=== PATIENT | male | born 1990 | race Caucasian/White ===

== ENCOUNTER 2020-03-27 09:38 | Emergency (ER) | payer BC, SELFPAY ==
[2020-03-27 09:40] VITALS: BP 157/109; PULSE 83; RESP 17; TEMP 35.9; O2SAT 97; BMI 34.2
--- NOTE | 2020-03-27 09:56 | CT_ITS ---
STUDY: CT ABDOMEN AND PELVIS WITH CONTRAST REASON FOR EXAM: Male, 29 years old. RT ABD PAIN X 7 DAYS RADIATION DOSAGE (If Supplied By Facility): CTDIvol = ( 16.51 ) mGy, DLP = ( 1289.44 ) mGycm TECHNIQUE: Transaxial images were obtained from the dome of the diaphragm to the symphysis pubis with oral contrast. Oral and amp; IV Gastrografin and amp; 100mL Isovue-300 was administered. Sagittal and coronal images were reconstructed. Individualized dose optimization techniques were used for this CT. COMPARISON: None. FINDINGS: Minimal degree of dependent bibasilar atelectasis. The visualized portions of the heart are within normal limits. Normal liver. Surgical clips are seen along the undersurface of the liver. Small gallstones. Borderline splenomegaly. Normal pancreas. Normal bilateral adrenal glands. Normal right kidney. Normal left kidney. Normal visualized stomach. Normal small intestine. Thickening of the wall of the proximal transverse colon and hepatic flexure. Colitis should be ruled out. Small mesenteric lymph nodes are seen in the right lower quadrant is suggestive of mesenteric adenitis. Normal abdominal aorta. Normal inferior vena cava. There is borderline retroperitoneal lymphadenopathy with enlarged nodes no greater than 10mm in the short axis diameter. Surgical clips are seen in the retroperitoneum. Normal urinary bladder. Normal abdominal wall. Straightening of the normal lumbar lordosis. CT/Abdomen/Pelvis WITH Contrast IMPRESSION: Small gallstones. Thickening of the proximal portion of the transverse colon and hepatic flexure. Colitis should be ruled out. Mesenteric adenitis in the right lower quadrant. Borderline splenomegaly. Electronically Signed: Fabian Damon, at 12:09 EST , Service support ,
[2020-03-27 10:14] LABS: Absolute Lymphocyte Count 1.74 X10^3/uL (0.83-4.51); Basophil# 0.01 X10^3/uL; Basophil% 0.2 % (0-1); Eosinophil# 0.05 X10^3/uL; Eosinophils% 1.1 % (0-5); Hematocrit 47.2 % (40-54); Hemoglobin 15.7 g/dL (13.0-16.5); Lymphocyte # 1.74 X10^3/ul (4.0); Mean Corp Hgb Conc 33.3 g/dL (32-36); Mean Corpuscular Hgb 29.6 pg (27.0-32.0); Mean Corpuscular Volume 88.9 fL (80-94); Mean Platelet Vol. 9.3 fl (6.2-12.0); Monocyte# 0.56 X10^3/uL; Monocyte% 12.9 % (0-10); NRBC Flagged by Analyzer 0 % (0-5); Neutrophil # 1.98 X10^3/uL (2.7-7.7); Neutrophil % 45.6 % (47-70); Platelet Count 199 K/mm3 (150-450); RBC Distribution Width CV 12.7 % (11.6-14.6); RBC Distribution Width SD 41.6 fl (35.1-43.9); Red Blood Count 5.31 M/mm3 (4.6-6.2); White Blood Count 4.4 K/mm3 (4.4-11.0)
[2020-03-27] MEDS: 0.9% Normal Saline 1,000 ML 125 ML IV (10:19)
[2020-03-27 10:39] LABS: Bacteria 0 SEEN /hpf (None Seen); Mucous, Urine 0 SEEN /hpf (<or=2+); Red Blood Cells-Urine 0 SEEN /hpf (0-5); White Blood Cells 0 SEEN /hpf (0-5)
[2020-03-27 10:42] LABS: ALB/GLOB Ratio 1.1 RATIO (0.9-2.4); AST(SGOT) 27 U/L (15-37); Alanine Aminotransfer ALT/SGPT 71 U/L (16-61); Alkaline Phosphatase 87 U/L (45-117); Anion Gap 4 (5-15); BUN 9 mg/dL (7-18); Calcium,Total 8.7 mg/dL (8.5-10.1); Chloride 104 mmol/L (98-107); Creatinine, Serum 1.12 mg/dL (0.70-1.30); EST Glomerular Filtration Rate 83 mL/min (>60); Est Glom Filt Rate - Afr Amer 100 mL/min (>60); Estimated Creatinine Clearance 107.78 ml/min; Globulin 3.5 g/dL (2.2-4.2); Glucose 105 mg/dL (74-106); Lipase 82 U/L (73-393); Potassium 3.8 mmol/L (3.5-5.1); Protein, Total 7.5 g/dL (6.4-8.2); Sodium Level 137 mmol/L (136-145)
[2020-03-27 10:46] LABS: Color, Urine Yellow (Yellow); Glucose, Dipstick Normal (Normal); Ketone-Dipstick Negative (Negative); Leukocyte Esterase-Dipstick Negative /ul (Negative); Nitrite-Dipstick Negative (Negative); Occult Blood-Urine Negative /ul (Negative); Protein-Dipstick Negative (Negative); Specific Gravity, Urine 1.025 (1.002-1.030); Urine Bilirubin Dipstick Negative (Negative); Urine Clarity Sl. Cloudy (Clear); Urine Urobilinogen Normal (Normal)
[2020-03-27 11:07] LABS: Squamous Epithelial Cells - UA 0-5 SEEN /hpf (0-5)
[2020-03-27 11:11] LABS: Lactic Acid 0.7 mmol/L (0.4-1.9)
--- NOTE | 2020-03-27 12:17 | ED.VISSUMM ---
- ER Visit Summary Date of Service: 03/27/20 Chief Complaint: [Abdominal pain] History of Present Illness: The patient is a 29 M [presents to the emergency department complaint of abdominal pain for the last 7 days. Patient also states he has had excessive gas over the last 4 days. Patient states that he always has loose stools and stool really is not any different than usual. Patient states the pain initially was in the upper abdomen but seems to have moved more to the right lower abdomen. Patient has had no nausea or vomiting. He is not had any fevers. He denies urinary symptoms. Food does not seem to make the pain worse or better.] Patient states that as a child he had to have some sort of a surgery on his colon as an infant but cannot remember exactly what he had done. Physical Examination: [HEENT-PERRLA, EOMI. Cranial nerves II through XII grossly intact. TMs clear. Mucous membranes moist. No adenopathy. Cardiovascular-regular rate and rhythm without murmur or ectopy Lungs-clear to auscultation, chest wall stable without crepitus or subcu emphysema Abdomen-normoactive bowel sounds, soft. Patient has tenderness to palpation over the epigastric region as well as the right lower quadrant. Patient tends to guard more over the right lower quadrant. Has had negative Kowalski sign. There is no rebound, rigidity, or peritoneal signs. Extremities-intact ?4, normal range of motion, normal pulses, atraumatic] Test Results: [CBC with differential showed a white count of 4.4, hemoglobin 15.7, hematocrit 47, platelets 199. Chemistries unremarkable. LFTs were unremarkable other than a slightly elevated ALT at 71. Urinalysis was normal. Lactate was normal 0.7. CT scan of the abdomen pelvis showed small gallstones and thickening of the proximal colon and transverse colon which could indicate colitis. Patient also had mesenteric adenitis in the right lower quadrant.] Emergency Department Course and Treatment: [IV line established on arrival. He refused any pain medication on arrival.] Treatment Plan: [Case was discussed with patient and results were given. At this point etiology of his pain is unclear although I suspect he may have colitis and will start on Cipro and Flagyl. Patient will be referred to general surgeon on-call for follow-up. Patient advised to return if worsening pain, fever, vomiting, or condition should worsen anyway.] I do not feel patient has acute cholecystitis. Disposition: [Discharged home in stable condition] Impression: [Abdominal pain Colitis Cholelithiasis] This note was generated with [employer] dictation software. It may contain incorrect words, spelling, and punctuation that were not noted in review of the chart prior to signing ED Disposition - Plan for ED Patient: Referrals: Tucker Palomares MD [Primary Care Provider] -
--- NOTE | 2020-03-27 12:20 | ED.DEP ---
ED Disposition - Plan for ED Patient: Instructions: ED Unknown Causes of Abdominal Pain Male, ED Gastroenteritis Bacterial Prescriptions: Ciprofloxacin [Cipro] 500 mg PO BID #14 tab Prescription Printed metroNIDAZOLE [Flagyl] 500 mg PO Q8H #21 tab Prescription Printed Referrals: Tucker Palomares MD [Primary Care Provider] - Franklin Veronica MD [STAFF PHYSICIAN] - 3-5 Days
[2020-03-27 12:56] VITALS: BP 121/65; PULSE 74; RESP 15; O2SAT 98
[2020-03-27] MEDS: metroNIDAZOLE 500 MG Tablet PO (12:56)
[2020-03-27] MEDS: Ciprofloxacin 250 MG Tablet 500 MG PO (12:56)
== END 2020-03-27 13:08 | disposition home or self-care (01) ==
PROVIDERS: Emergency Provider Emergency Medicine; PCP Family Medicine
DX: K52.9 Noninfective gastroenteritis and colitis, unspecified (principal); K80.20 Calculus of gallbladder without cholecystitis without obstruction; R10.9 Unspecified abdominal pain; I88.0 Nonspecific mesenteric lymphadenitis
CPT/HCPCS: 74177; 80053; 81001; 83605; 83690; 85025; 96360; 96361; 99284; J7030; Q9967; A4216

== ENCOUNTER 2020-12-19 02:22 | Emergency (ER) | payer BC, SELFPAY ==
[2020-12-19 02:23] VITALS: BP 139/79; PULSE 79; RESP 24; TEMP 35.1; O2SAT 95; BMI 34.1
[2020-12-19 02:27] VITALS: BP 139/79; PULSE 79; PULSE 94; RESP 24; RESP 32; TEMP 35.1; O2SAT 95; O2SAT 97
--- NOTE | 2020-12-19 02:34 | CT_ITS ---
STUDY: CTA CHEST REASON FOR EXAM: Male, 30 years old. pulmonary embolism RADIATION DOSAGE (If Supplied By Facility): CTDIvol = ( 13.75 ) mGy, DLP = ( 539.77 ) mGycm TECHNIQUE: The examination was performed with the intravenous administration of IV 100mL Isovue-370. Post-processing of the angiographic images was performed, with multiplanar reformation and 3D reconstruction. Individualized dose optimization techniques were used for this CT. COMPARISON: None. FINDINGS: Normal enhancement of the main pulmonary artery and right and left pulmonary arteries. Normal enhancement of the bilateral peripheral pulmonary arteries. There is no demonstrated pulmonary embolism. Normal thoracic aorta and visualized great vessels. There is no demonstrated aortic dissection. Normal heart and pericardium. Normal mediastinum. Normal hilar regions. Normal visualized trachea and bronchi. Diffuse and patchy groundglass airspace disease bilaterally compatible with COVID. No consolidation or effusion. Normal pleura. Normal chest wall structures. Normal osseous structures. Normal visualized upper abdomen. CT/CTA Chest W/WO Contrast IMPRESSION: Normal CTA chest examination, without a demonstrated pulmonary embolism or arterial dissection. Diffuse patchy airspace disease with groundglass appearance compatible with COVID. Electronically Signed: Navid Park DO at 4:44 EDT Tel , Service support ,
--- NOTE | 2020-12-19 02:35 | EDS_ITS ---
HPI History of Present Illness Chief Complaint: Syncope Informant: patient, spouse/S.O. and family Narrative Narrative: 30-year-old male presents the emergency room with syncopal episode. Patient is Covid positive and on about day 7 or 8 symptoms. He began to feel ill last Wednesday and was positive by . He was on vacation in the [facility] and was taken to the hospital by car but then later by EMS as he had a syncopal episode there. He received IV fluids and was discharged home. They returned home about 24 hours ago. The patient has been having nausea and diarrhea as well as headaches. States he has been doing his best to eat and drink. Has been urinating fine. Has been taking Tylenol for fever. The patient states that the syncopal episode occurred in the setting of a diarrhea event. He denies any chest pain but notes shortness of breath [facility] Medical History Femur fracture, left Femur fracture, right Home Medications dexamethasone [Decadron] 6 mg PO DAILY #5 tab 12/19/20 [Rx Last Taken Unknown] Allergy/AdvReac Type Severity Reaction Status Date / Time morphine Allergy Other Verified 03/27/20 09:39 Surgical History History of colostomy reversal Social History (Updated 12/19/20 @ 02:[address] Efrain Montes DO) Smoking Status: Never smoker substance use type: does not use ROS ROS ED Constitutional Constitutional ED: Reports chills, fever(s) and other Details: General weakness ; Denies weight loss Eyes Eyes: Denies change in vision or diplopia ENT ENT ED: Denies ear pain, rhinorrhea or sore throat Cardiovascular Cardiovascular: Denies chest pain, orthopnea, palpitations or racing heartbeat Respiratory/Chest Respiratory/Chest: Reports dyspnea and dyspnea on exertion; Denies cough or orthopnea Gastrointestinal Gastrointestinal: Reports diarrhea and nausea; Denies abdominal pain or vomiting Genitourinary Genitourinary ED: Denies dysuria, hematuria or urinary frequency Musculoskeletal Musculoskeletal: Reports myalgias; Denies arthralgias Integumentary Denies abscess or rash Neurologic Neurologic: Reports headache(s); Denies weakness Psychiatric Psychiatric: Denies anxiety, depression, suicidal ideation or suicidal thoughts Endocrine Endocrinology: Denies polydipsia, polyphagia or polyuria Allergic/Immunologic Allergic/Immunologic ED: Denies mouth swelling, tongue swelling or urticaria EXAM Physical Exam Const Vital Signs: 12/19/20 02:23 12/19/20 02:27 12/19/20 02:45 Temperature 95.2 F L 95.2 F L Temperature Source Temporal Temporal Pulse Rate 79 79 74 Respiratory Rate 24 H 24 H Respiratory Pattern Tachypnea Blood Pressure 139/79 H 139/79 H Blood Pressure Mean 99 99 Pulse Ox 95 95 Oxygen Delivery Method Room Air Room Air Positive well nourished and well developed General Appearance ED: well developed HEENT Reports normocephalic, head/scalp atraumatic and moist mucous membranes Eyes PERRL and EOMs intact bilaterally Neck no lymphadenopathy, supple and no JVD Resp normal respiratory effort and clear to auscultation bilaterally Cardio regular rate, regular rhythm and no murmurs GI normal to inspection, nondistended, normoactive bowel sounds and non-tender Palpation: soft Back/Spine no CVA tenderness and normal ROM Extremity normal to inspection General Extremety ED: Negative for edema General Extremity: Negative for edema Neuro oriented x3 and CN's II-XII intact bilaterally Sensorium / Orientation: alert Motor Exam: strength 5/5 throughout Psych mental status grossly normal Mood & Affect: Negative for depressed or tearful Skin no rashes or lesions noted and no wounds MDM MDM MDM Narrative Medical decision making narrative: CTA of the chest was negative for pulmonary embolism or dissection. Noted Covid areas of pneumonitis. White count is 6. Normal platelet count of 163. Electrolytes glucose and renal function are normal. Troponin 7.2. Patient will be given IV fluids and a dose of Decadron and albuterol. We can schedule some Decadron at home. We talked about home care return if worsening or concerns Lab Data Attestation: I reviewed the patient's lab results. Labs: Laboratory Results - last 24 hr 12/19/20 12/19/20 02:30 02:30 WBC 6.0 RBC 5.09 Hgb 14.9 Hct 44.5 MCV 87.4 MCH 29.3 MCHC 33.5 RDW Std Deviation 41.1 RDW Coeff of Germain 12.8 Plt Count 163 MPV 9.6 Immature Gran % (Auto) 0.700 Neut % (Auto) 66.7 Lymph % (Auto) 28.7 [place] % (Auto) 3.7 Eos % (Auto) 0.0 Baso % (Auto) 0.2 Absolute Neuts (auto) 4.0 Absolute Lymphs (auto) 1.73 Nucleated RBC % 0 Sodium 138 Potassium 3.7 Chloride 106 Carbon Dioxide 23.0 Anion Gap 9 BUN 7 Creatinine 0.97 Estim Creat Clear Calc 119.68 Est GFR (MDRD) Af Amer 117 Est GFR (MDRD) Non-Af 97 BUN/Creatinine Ratio 7.2 L Glucose 138 H Calcium 8.8 Total Bilirubin 0.50 AST 29 ALT 40 Alkaline Phosphatase 51 Troponin I High Sens 7.2 Total Protein 7.3 Albumin 3.4 Globulin 3.9 Albumin/Globulin Ratio 0.9 Radiography Diagnostic Testing: Radiology Impression Chest CTA 12/19/20 02:34 IMPRESSION: Normal CTA chest examination, without a demonstrated pulmonary embolism or arterial dissection. Diffuse patchy airspace disease with groundglass appearance compatible with COVID. Electronically Signed: Navid Park DO at 4:44 EDT Tel , Service support , EKG Initial EKG: Attestation: I personally reviewed and interpreted this EKG as follows: Comments: EKG demonstrates a normal sinus rhythm with a ventricular rate of 73 bpm. No concerning features of ACS or ectopy noted. Discharge Plan Triage Chief Complaint: Syncope Other Complaint: Weakness ED Provider: Efrain Montes Dx/Rx/DC Orders Clinical Impression: Syncope, COVID-19 Instructions: Coronavirus Disease 2019 (COVID-19): Caring for Yourself or Others Prescriptions: New dexamethasone [Decadron] 6 mg tablet 6 mg PO DAILY Qty: 5 RF: 0 Primary Care Provider: Tucker Palomares Referrals: Tucker Palomares MD [Primary Care Provider] - As Needed Disposition Disposition: Home, Self Care
--- NOTE | 2020-12-19 02:35 | EKG12_ITS ---
Test Reason : SYNCOPE Blood Pressure : / mmHG Vent. Rate : 073 BPM Atrial Rate : 073 BPM P-R Int : 170 ms QRS Dur : 086 ms QT Int : 392 ms P-R-T Axes : 043 047 036 degrees QTc Int : 431 ms Normal sinus rhythm Normal ECG Confirmed by SHARONA SCOTT, RODGER ([id number]), senior technical editor DIANELYS IBRAHIM ([id number]) on 12/23/2020 9:38:27 AM Referred By: Confirmed By:RODGER TABOR MD
[2020-12-19 02:40] LABS: Absolute Lymphocyte Count 1.73 X10^3/uL (0.83-4.51); Basophil# 0.01 X10^3/uL; Basophil% 0.2 % (0-1); Hematocrit 44.5 % (40-54); Hemoglobin 14.9 g/dL (13.0-16.5); Lymphocyte # 1.73 X10^3/ul (0.83-4.51); Lymphocyte % 28.7 % (19-41); Mean Corp Hgb Conc 33.5 g/dL (32-36); Mean Corpuscular Hgb 29.3 pg (27.0-32.0); Mean Corpuscular Volume 87.4 fL (80-94); Mean Platelet Vol. 9.6 fl (6.2-12.0); Monocyte# 0.22 X10^3/uL; Monocyte% 3.7 % (0-10); NRBC Flagged by Analyzer 0 % (0-5); Neutrophil # 4.02 X10^3/uL (2.7-7.7); Neutrophil % 66.7 % (47-70); Platelet Count 163 K/mm3 (150-450); RBC Distribution Width CV 12.8 % (11.6-14.6); RBC Distribution Width SD 41.1 fl (35.1-43.9); Red Blood Count 5.09 M/mm3 (4.6-6.2)
[2020-12-19] MEDS: 0.9% Normal Saline 1,000 ML 999 ML IV ×2 (02:44→04:27)
[2020-12-19] MEDS: Ketorolac 30 MG/ML Syringe IV (02:44)
[2020-12-19] MEDS: Ondansetron 4 MG/2 ML Vial IV (02:44)
[2020-12-19 02:45] VITALS: PULSE 74
[2020-12-19 02:59] LABS: ALB/GLOB Ratio 0.9 RATIO (0.9-2.4); AST(SGOT) 29 U/L (15-37); Alanine Aminotransfer ALT/SGPT 40 U/L (16-61); Albumin, Serum 3.4 g/dL (3.2-5.0); Alkaline Phosphatase 51 U/L (45-117); Anion Gap 9 (5-15); BUN 7 mg/dL (7-18); BUN/Creat Ratio 7.2 RATIO (10-20); Calcium,Total 8.8 mg/dL (8.5-10.1); Chloride 106 mmol/L (98-107); Creatinine, Serum 0.97 mg/dL (0.70-1.30); EST Glomerular Filtration Rate 97 mL/min (>60); Est Glom Filt Rate - Afr Amer 117 mL/min (>60); Estimated Creatinine Clearance 119.68 ml/min; Globulin 3.9 g/dL (2.2-4.2); Glucose 138 mg/dL (74-106); Potassium 3.7 mmol/L (3.5-5.1); Protein, Total 7.3 g/dL (6.4-8.2); Sodium Level 138 mmol/L (136-145); Troponin-I HS 7.2 pg/mL (3.0-78.5)
[2020-12-19 04:30] VITALS: BP 139/79; PULSE 74; RESP 32; TEMP 35.1; O2SAT 97
[2020-12-19] MEDS: dexAMETHasone 4 MG Tablet 6 MG PO (05:04)
[2020-12-19] MEDS: INHALER, ASSIST DEVICES 1 EACH SPACER INHALATION (05:05)
[2020-12-19 05:21] VITALS: BP 112/78; PULSE 64; RESP 22; TEMP 37; O2SAT 95
== END 2020-12-19 05:21 | disposition home or self-care (01) ==
PROVIDERS: Emergency Provider Emergency Medicine; PCP Family Medicine
DX: U07.1 COVID-19 (principal); R55 Syncope and collapse
CPT/HCPCS: 71275; 80053; 84484; 85025; 93005; 96361; 96374; 96375; 99285; J7030; Q9967; A4216; J2405

== ENCOUNTER 2022-08-27 00:36 | Emergency (ER) | payer BC, SELFPAY ==
[2022-08-27 00:37] VITALS: BP 172/96; PULSE 80; RESP 18; TEMP 37; O2SAT 99; BMI 23.4
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
[2022-08-27] MEDS: Tetracaine 0.5% Ophthalmic Bottle 1 DRP EACH EYE (01:33)
[2022-08-27] MEDS: Erythromycin Base 1 OPTH.TUBE 1 APPLIC EACH EYE (03:26)
== END 2022-08-27 03:31 | disposition home or self-care (01) ==
PROVIDERS: Emergency Provider Student in an Organized Health Care Education/Training Program; PCP Family Medicine; Visit Provider Student in an Organized Health Care Education/Training Program
DX: T26.41XA Burn of right eye and adnexa, part unspecified, initial encounter (principal); T26.42XA Burn of left eye and adnexa, part unspecified, initial encounter; X08.8XXA Exposure to other specified smoke, fire and flames, initial encounter
CPT/HCPCS: 99282

== ENCOUNTER 2023-11-14 07:53 | Emergency (ER) | payer BC, SELFPAY ==
[2023-11-14 07:53] VITALS: BP 164/100; PULSE 98; RESP 18; TEMP 36.1; O2SAT 98; BMI 38.1
--- NOTE | 2023-11-14 08:14 | EDS_ITS ---
HPI HPI - URI History of Present Illness Chief Complaint: Ear Problem Narrative Narrative: 33-year-old male presenting with what he presumes is a viral syndrome. He has a cough and some congestion. Patient states he had a low-grade fever but reports it was 99 ?F. Patient denies any nausea or vomiting. His states that both she and their daughter have the cough first and he was last to get it. They both have recovered already. He does feel like he has some mild bodyaches and chills. Patient is more concerned today with his left ear pain which started. Denies any trauma. He states he thought he had drainage coming out of his ear today. ROS ROS ED Constitutional Constitutional ED: Reports chills, fever(s) and subjective; Denies sweats Eyes Eyes: Denies blurry vision or change in vision ENT ENT ED: Reports ear pain left; Denies sore throat Cardiovascular Cardiovascular: Denies chest pain, palpitations or racing heartbeat Respiratory/Chest Respiratory/Chest: Denies cough, dyspnea or sputum Gastrointestinal Gastrointestinal: Denies abdominal pain, constipation, diarrhea, nausea or v omiting Genitourinary Genitourinary ED: Denies dysuria, hematuria or urinary frequency Musculoskeletal Musculoskeletal: Reports myalgias; Denies arthralgias or neck pain Integumentary Denies abscess, Abrasions or rash Neurologic Neurologic: Denies headache(s), paresthesias or weakness Psychiatric Psychiatric: Denies anxiety, depression, suicidal ideation or suicidal thoughts Endocrine Endocrinology: Denies polydipsia or polyuria [facility] Medical History Femur fracture, right Femur fracture, left Home Medications ?Medication ?Instructions ?Recorded ?Last Taken ?Type dexamethasone 6 mg tablet 6 mg PO DAILY #5 tabs 12/19/20 Unknown Rx (Decadron) amoxicillin 875 mg tablet 875 mg PO BID #14 tabs 11/14/23 Unknown Rx Allergy/AdvReac Type Severity Reaction Status Date / Time morphine Allergy Other Verified 11/14/23 07:53 Surgical History History of colostomy reversal Social History Smoking Status: Never smoker substance use type: does not use EXAM Physical Exam Const Vital Signs: 11/14/23 07:53 Temperature 96.9 F L Temperature Source Temporal Pulse Rate 98 Respiratory Rate 18 Blood Pressure 164/100 H Blood Pressure Mean 121 Pulse Ox 98 Oxygen Delivery Method Room Air Positive well nourished General Appearance ED: NAD; Negative for pallor HEENT Reports moist mucous membranes normocephalic External Ear: external ears normal Tympanic Membrane ED: Yes TM abnormal bulging, erythematous and loss of landmarks Eyes PERRL Neck no lymphadenopathy Resp normal respiratory effort Auscultation: Negative for rales, rhonchi or wheezes GI non-tender Extremity normal to inspection Neuro oriented x3 and CN's II-XII intact bilaterally Sensorium / Orientation: alert Psych mental status grossly normal Skin General Skin Exam: Negative for jaundice or pallor MDM MDM MDM Narrative Medical decision making narrative: Patient is here with cough and mild congestion. He is more concerned with his left ear pain. I did correctional counselor him that his heart is regular and rhythm not murmur lungs clear BILATERALLY. Patient was offered viral testing and chest x- ray but declines. I do not believe he needs lab work. Vital signs stable he is afebrile. Patient has left otitis media. Patient will be sent on amoxicillin. Return precautions discussed. Impression: 1. Viral syndrome 2. Otitis media Lab Data Attestation: I reviewed the patient's lab results. Discharge Plan Triage Chief Complaint: Ear Problem ED Provider: Chang Platt Dx/Rx/DC Orders Instructions: ED Otitis Media Adult Prescriptions: New amoxicillin 875 mg tablet 875 mg PO BID Qty: 14 0RF No Action dexamethasone [Decadron] 6 mg tablet 6 mg PO DAILY Qty: 5 0RF Primary Care Provider: Ori Palomares Referrals: Ori Palomares MD [Primary Care Provider] - Print Language: Filipino Disposition Disposition: Home, Self Care
[2023-11-14 08:55] VITALS: BP 127/63; PULSE 84; RESP 16; TEMP 36.2; O2SAT 99
== END 2023-11-14 08:56 | disposition home or self-care (01) ==
LOC: ED 08:22
PROVIDERS: Emergency Provider Student in an Organized Health Care Education/Training Program; Visit Provider Student in an Organized Health Care Education/Training Program
DX: B34.9 Viral infection, unspecified (principal); H66.92 Otitis media, unspecified, left ear
CPT/HCPCS: 99282

== ENCOUNTER 2025-01-18 11:31 | Emergency (ER) | payer OTHER, SELFPAY ==
[2025-01-18] VITALS (7 sets, daily range): BP systolic 124–191; BP diastolic 72–122; PULSE 66–107; RESP 12–20; TEMP 36.6–36.8; O2SAT 96–100; BMI 41.3
[2025-01-18] MEDS: fentaNYL 100 MCG/2 ML Ampul IV (11:39)
--- NOTE | 2025-01-18 11:41 | CT_ITS ---
PROCEDURE: CTA UPPER EXT W/WO CONTRAST 01/18/2025 REASON FOR EXAM: WRIST LACERATION Bleeding. TECHNIQUE: Procedure Code: [id number] Modality: CT Procedure: CTA UPPER EXT W/WO CONTRAST Coronal and Sagittal reconstruction series were provided. CONTRAST: Isovue-300 VOLUME: 100 mL One or more dose reduction techniques were used (e.g., Automated exposure control, adjustment of the mA and/or kV according to patient size, use of iterative reconstruction technique). RADIATION DOSE SUMMARY: CTDlvol: 9.6 mGy DLP: 137.31 mGycm COMPARISON: Prior radiographs done earlier in the day. FINDINGS: Bones: Unremarkable Joints: Joint space(s) preserved. No subluxation or dislocation. Soft Tissues: Soft tissue laceration overlying the volar aspect of the wrist. No vascular abnormality is seen. No evidence of hematoma. CT/CTA Upper Ext W/WO Contrast IMPRESSION: No vascular abnormality is seen. Reading Location: [id number]
[2025-01-18] MEDS: 0.9% Normal Saline (1000mL) 1,000 ML 999 ML IV (11:47)
--- NOTE | 2025-01-18 11:48 | EX.ED.DYSGE1 ---
HPI History of Present Illness Chief Complaint: Laceration Narrative Narrative: Patient is a 34-year-old male with no known significant past medical history who presents to the emergency department the chief complaint of right wrist laceration. He states that he was working earlier and notes that a steel plate cut his wrist. He states that he is unsure when his last tetanus shot was. Patient is complaining of severe pain in the right upper extremity as well as some numbness in his right hand. [facility] Medical History Femur fracture, right Femur fracture, left Home Medications ?Medication ?Instructions ?Recorded ?Last Taken ?Type cephalexin 500 mg capsule 500 mg PO BID 7 days #14 caps 01/18/25 Unknown Rx ondansetron 4 mg disintegrating 4 mg PO Q6H PRN nausea and 01/18/25 Unknown Rx tablet vomiting #20 tabs oxycodone-acetaminophen 5 mg-325 1 tab PO Q6H PRN pain 3 days #12 01/18/25 Unknown Rx mg tablet (Endocet) tabs sulfamethoxazole 800 1 tab PO BID 7 days #14 tabs 01/18/25 Unknown Rx mg-trimethoprim 160 mg tablet Allergy/AdvReac Type Severity Reaction Status Date / Time morphine Allergy Other Verified 11/14/23 07:53 Surgical History History of colostomy reversal Social History Smoking Status: Never smoker substance use type: does not use ROS ROS ED ROS Narrative Neurological: Complains of numbness in his right hand, denies weakness Musculoskeletal: Complains of right wrist pain from the laceration Skin: Complains of laceration of the right wrist as noted above EXAM Physical Exam Narrative Exam Narrative: General: Patient was lying in bed did appear to be uncomfortable secondary to the pain Head: Atraumatic, normocephalic Eyes: PERRL bilaterally, EOMI bilateral, no conjunctival injection noted Neck: Soft, supple, trachea midline Cardiovascular: Patient tachycardic with a regular rhythm Respiratory: Clear to auscultation bilaterally Abdomen: Soft, nondistended, tender to palpation Musculoskeletal: Patient has tenderness palpation over the volar aspect of his right wrist Extremities: Radial pulses +2/4 in the right upper extremity, cap refill less than 2 seconds in the right upper extremity, +5/5 strength noted in the right upper extremity and the left upper extremity Neurological: Patient follow commands knew that he was at [facility] year is 2024. Sensation was intact when compared bilaterally grossly Skin: Patient has a complex approximately 6.5 cm laceration over the volar aspect of his right wrist with originally active bleeding noted however after pressure this resolved Const Vital Signs: 01/18/25 11:33 01/18/25 12:01 01/18/25 12:30 Temperature 97.9 F Temperature Source Temporal Pulse Rate 107 H 84 82 Respiratory Rate 20 H 16 16 Blood Pressure 191/122 H 144/92 H 144/92 H Blood Pressure Mean 145 109 109 Pulse Ox 100 98 98 Oxygen Delivery Method Room Air Room Air Room Air 01/18/25 13:22 01/18/25 14:00 01/18/25 16:16 Temperature Temperature Source Pulse Rate 77 77 66 Respiratory Rate 15 18 12 Blood Pressure 135/85 H 127/91 H 124/72 H Blood Pressure Mean 101 103 89 Pulse Ox 100 96 98 Oxygen Delivery Method Room Air Room Air Room Air 01/18/25 16:33 Temperature 98.2 F Temperature Source Pulse Rate 66 Respiratory Rate 14 Blood Pressure 127/89 H Blood Pressure Mean 101 Pulse Ox 100 Oxygen Delivery Method MDM MDM MDM Narrative Medical decision making narrative: Patient is a 34-year-old male who presents to the emergency department the chief complaint of a right wrist injury and laceration. On the differential diagnose includes but not limited to skin laceration, vascular injury, neurological injury, open fracture. Once workup is obtained reviewed he will be reevaluated. Patient tetanus shot will be updated. Patient BMP reviewed showed a sodium is normal 137, potassium is 3.6, creatinine normal at 1.12. Patient's x-ray of his wrist reviewed by myself and by radiology showed no acute fractures or foreign body laceration noted. Patient CTA of his upper extremity was reviewed originally by vascular surgery and Dr. Espinosa and he states that everything appears to be patent. Patient's CTA was also read by radiology which showed no vascular abnormalities noted. Patient's wound was copiously irrigated see procedure note for separate details. Tetanus shot was updated. Patient given 2 g Ancef. Reached out to the hand surgeon here however he is out of town and states that this patient needs close follow-up. Therefore I reached out to [facility] orthopedics and spoke with Dr. Mccabe physician entry level administrative assistant and she recommends me reaching out to [facility] orthopedic upper extremity surgeon Dr. Riley. I discussed the case with him and he states that he will see this patient tomorrow is recommending a volar splint to be placed as well. Procedure note Procedure name: Laceration repair Indication: Reduce risk of infection Location: Right volar aspect of forearm complex 6-1/2 cm laceration with 2 small arterial bleeds Preprocedure diagnosis: Laceration Postprocedure diagnosis: Repaired laceration Informed consent was obtained prior to procedure started. Procedure: The appropriate timeout was taken. The area was prepped and draped in usual sterile fashion. Local anesthesia was achieved using 4 cc of lidocaine 1% with epinephrine. An attempt to get the bleeding to stop however this was unsuccessful therefore 3 [id number] stitches were placed using 4-0 Vicryl to stop the small arterial bleeds that were noted. There were 2 of these. Wound was copiously irrigated. While later the patient was anesthetized with 1% lidocaine without epinephrine a total of 6 cc 20 4-0 Ethilon interrupted sutures were placed. Estimated blood loss was less than 0.5 mL. Dressing was applied to the area and anticipatory guidance, as well as standard postprocedure care was explained. Return precautions are given. Patient tolerated procedure well without any complications. Follow-up visit for suture removal and evaluation of laceration. Procedure note Patient had Adaptic placed over the laceration followed by 4 x 4's followed by Webril. Patient then had plaster applied with a volar splint to the right upper extremity followed by Webril and Brandt wrap. Patient remains neurovascularly intact afterwards. Lab Data Labs: Laboratory Results - last 24 hr 01/18/25 11:47 Sodium 137 Potassium 3.6 Chloride 101 Carbon Dioxide 22.0 Anion Gap 14 BUN 14 Creatinine 1.12 Estim Creat Clear Calc 127.59 Est GFR (MDRD) Non-Af 89 BUN/Creatinine Ratio 12.4 Glucose 100 H Calcium 9.6 Radiography Diagnostic Testing: Clinical Impression(s) from Imaging Studies Upper Extremity CTA 01/18/25 11:41 IMPRESSION: No vascular abnormality is seen. Reading Location: -[id number] Wrist X-Ray 01/18/25 12:54 IMPRESSION: Laceration. No foreign body or fracture. Reading Location: [id number] Discharge Plan Triage Chief Complaint: Laceration ED Provider: Terrell Campos Dx/Rx/DC Orders Clinical Impression: Laceration of wrist, right, Arterial hemorrhage, Acute pain of right wrist, Numbness and tingling in right hand Prescriptions: New oxycodone-acetaminophen [Endocet] 5-325 mg tablet 1 tab PO Q6H PRN (Reason: pain) 3 Days Qty: 12 0RF ondansetron 4 mg tablet,disintegrating 4 mg PO Q6H PRN (Reason: nausea and vomiting) Qty: 20 0RF cephalexin 500 mg capsule 500 mg PO BID 7 Days Qty: 14 0RF sulfamethoxazole-trimethoprim 800-160 mg tablet 1 tab PO BID 7 Days Qty: 14 0RF Primary Care Provider: Ori Palomares Referrals: Care Physician,No Primary [Non-Staff] - Activity Restrictions/Additional Instructions: Follow-up with Dr. Riley tomorrow at your scheduled appointment. Return with worsening symptoms or any other concerns. Rotate Tylenol and ibuprofen [id number] when you do this you can take something every 3 hours for pain with a max dose Tylenol in 24 hours 4000 mg max dose of ibuprofen in 24 hours 3200 mg. Use the Endocet and Zofran for breakthrough pain. Do not operate anything under the influence this medication is a make you sleepy drowsy. Take antibiotics as prescribed. Print Language: Polish Disposition Disposition: Home, Self Care
[2025-01-18] MEDS: Lidocaine 1% /Epi 1:100 (20ml) 20 ML Vial INFILT (12:21)
--- NOTE | 2025-01-18 12:54 | RAD_ITS ---
PROCEDURE: WRIST MIN 3 VIEWS 01/18/2025 REASON FOR EXAM: LACERATION/INJURY TECHNIQUE: Procedure Code: RADWR Modality: DX Procedure: WRIST MIN 3 VIEWS Laterality: Right COMPARISON: None FINDINGS: Bones: No fracture. Joints: Normal alignment. Soft tissues: Laceration with gas in the lateral wrist. Other: No foreign body. RAD/Wrist min 3 Views IMPRESSION: Laceration. No foreign body or fracture. Reading Location: [id number]
[2025-01-18 13:09] LABS: Anion Gap 14 (5-15); BUN 14 mg/dL (4-19); BUN/Creat Ratio 12.4 RATIO (10-20); Calcium,Total 9.6 mg/dL (7.6-11.0); Carbon Dioxide 22.0 mmol/L (21.0-32.0); Chloride 101 mmol/L (98-108); Estimated Creatinine Clearance 127.59 ml/min (50-250); Glucose 100 mg/dL (70-99); Potassium 3.6 mmol/L (3.3-5.1)
[2025-01-18] MEDS: Cefazolin 2 GM in 0.9% Normal Saline (100mL Bag) 100 ML IV (13:32)
== END 2025-01-18 17:33 | disposition home or self-care (01) ==
PROVIDERS: Emergency Provider Emergency Medicine; PCP Family Medicine; Visit Provider Emergency Medicine
DX: S61.511A Laceration without foreign body of right wrist, initial encounter (principal); R20.2 Paresthesia of skin; Y99.0 Civilian activity done for income or pay; R20.0 Anesthesia of skin; R58 Hemorrhage, not elsewhere classified; W26.8XXA Contact with other sharp object(s), not elsewhere classified, initial encounter
CPT/HCPCS: 13121; 73110; 73206; 80048; 96361; 96365; 96372; 96375; 96376; 99283; Q9967; A4216; J2405

== ENCOUNTER 2025-04-05 08:30 | Outpatient (RCR) | payer OTHER, BC, SELFPAY ==
--- NOTE | 2025-03-01 08:39 | HP.OTEVAL_ITS ---
Patient's Visit Information Visit Information Visit Information: CONCEPCION JONES is a 34 year old M, referred to Occupational Therapy by Dr. Keeley Riley MD, with a diagnosis of right wrist tendon/median nerve laceration. Date of Evaluation: 02/28/25 Occupational Therapist: BHARATHI Bey/Nicolasa, CHT Subjective Subjective: This 34 year old male was seen for OT eval with dx of right wrist level tendon/nerve laceration. Pt states 01/18/25 he suffered a work injury. ( pt worked for [employer]) steel plate on a kicker. pt underwent sx and pt is right handed pt states he has 3 small children at home. pt states he is limited with use of his right dominate hand with ADLS and IADLs. pt continues to be off of work. pt states constant tingling but feels finger ROM has improved. pt would like to know what he can do to return to his PLOF faster. Pain right hand: Current Pain Intensity: 3 Pain Intensity Range: 5 ROM Forearm: supination 50* left 75* Wrist: right 35/25 left 80/80 CMC: right 0 left 15 MP: right 30 left 60 IP: right 40 left 70 ROM Comments: pt demo avg. of 80* PIP flexion of digits on right but 1.5" away from composite fist. pt demo avg. of 95* PIP flexion of digits on left hand full composite fist Strength Engraver Set Up Operator: right NT left 120# Lateral Pinch: right NT left 28# Tripod Pinch: right NT left 22# Strength Comments: will test right at later date Sensation Thumb: right 3.22 diminished light touch left 2.83 normal sensation Index: right 2.83 left 2.83 interpretation normal sensation Middle: right 2.83 left 2.83 interpretation normal sensation Ring: right 2.83 left 2.83 interpretation normal sensation Little: right 2.83 left 2.83 interpretation normal sensation Quick DASH-Disab of Arm,Shoulder& Hand Quick DASH Score: 88.3325 Goals Goal:Daily scar massage when approriate: Yes Goal:ROM equal to unaffected hand: Yes Goal:Engraver Set Up Operator/Pinch strength at least 75% of unaffected hand: Yes Comment: will not initiate until cleared by Goal:No pain with affected hand use: Yes Goal:Full use of affected hand in daily activities including work: Yes Goal:Improvement in sensation documented by [place] monofiliaments: Yes Rehabilitation General Assessment: pt arrives s/p 5 weeks from right wrist level tendon repair with median nerve repair- pt demo with light composite fist of digits ( 1.5" away from composite fist) However due to newly healing structures pt is unable to use his right hand with daily occupations at this time. Pt would benefit from skilled OT services 1-2x week for 10 weeks to return pt to his PLOF. Today therapist gave elastomer for using over scar at night- ed. pt on scar mtg, tendon glides- short arch wrist ROM and thumb opposition. Pt would also benefit from sensory stim/ desensitization as needed. pt demo understanding and agree to POC. Rehabilitation Potential: Good Anticipated Interventions Anticipated Interventions: Early Active Motion, A/AAROM/PROM, Edema Control, Scar Care, Triggerpoint Release, Desensitization, Sensory Retraining, Modalities, Orthoses, Joint Protection/Energy Conservation, Ergonomic Education, Fine Motor Coord/Azael, Sensory Stimulation, ADL Training, Education re assistive Equipment, Education re Diagnosis and Home Program Visit Plan Frequency: 1-2x /Week Duration: 3 Months TEXT: Thank you for the opportunity to evaluate your patient. For Medicare and Medicare HMO plans, please review the plan of care and approve it. It will need to be FAXED BACK to us at [phone] for Medicare purposes. Please let me know if there are questions or concerns regarding this plan of care. Physician Signature: Date:
--- NOTE | 2025-03-19 10:25 | HP.OTREVAL ---
Re-Evaluation Intro: Dr. Keeley Riley MD, It has been my pleasure to treat CONCEPCION JONES over the last 7 visits for right wrist tendon/median nerve laceration. Please see the progress note below for an update on the occupational therapy plan of care! Subjective Subjective: pt arrives 7 weeks and 5 days s/p from median nerve repair and tendon repair wrist level- pt states he is doing well- able to use right hand for light activity- pt states he feels he is also getting more feeling back. Pt states when he returns to work he will have to lift 40# . Objective Objective/Function: right wrist 55/40 right UD 20* right RD 15* pt able to form composite fist opposition to LF PIP right honeycomb blanket maker strength 25# left 125# right lateral pinch 8# left 22# right tripod pinch 6# left 24# pts sensation is returning states touching towels and other fabrics are more tolerant. Monofilament testing thumb tip is 2.83 but still has sensation deficits distal to incision area. pt is also noticing a sweaty hand with activity. therapist has ed. pt that these are all good signs of sensory return. pt is performing scar mtg. ROM and sensory re-ed. pt using right UE as much as what he can aimee. lifting about 2# comfortably. therapy would like to cont. with PRE. 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 - please advise Goals Goals Patient Goals: Return to Work, Use Hand/Wrist/Arm Normally Again, Be More Independent in ADLS and Resume Former Household Responsibilities (Cooking,Cleaning,Yard, etc.) Goal:Daily scar massage when approriate: Yes Goal:ROM equal to unaffected hand: Yes Goal:Filenet Developer/Pinch strength at least 75% of unaffected hand: Yes Goal:No pain with affected hand use: Yes Goal:Full use of affected hand in daily activities including work: Yes Goal:Improvement in sensation documented by [place]-Heydi monofiliaments: Yes Anticipated Interventions Anticipated Interventions Anticipated Interventions: Early Active Motion, A/AAROM/PROM, Edema Control, Scar Care, Triggerpoint Release, Desensitization, Sensory Retraining, Modalities, Orthoses, Joint Protection/Energy Conservation, Ergonomic Education, Fine Motor Coord/Azael, Sensory Stimulation, ADL Training, Education re assistive Equipment, Education re Diagnosis and Home Program Re-Evaluation Ending Re-evaluation ending: Please do not hesitate to contact me at [phone] by phone or if you have questions or concerns regarding this new plan of care! Sincerely, Magy Abernathy, OTR/L, CHT
--- NOTE | 2025-04-05 12:02 | HP.OTDCSUM ---
Discharge Summary D/C Summary: It has been my pleasure to treat CONCEPCION JONES under orders from Dr. Keeley Riley MD, for the diagnosis of right wrist tendon/median nerve laceration for a total of 12 visit(s). Please see the following information for a summary of their discharge status. Overall Improvement % Improvement: 60 Objective Objective/Function: right wrist 55/40 right UD 20* right RD 15* pt able to form composite fist opposition to LF PIP right counter weigher strength 60# left 125# right lateral pinch 8# left 22# right tripod pinch 6# left 24# pts sensation is returning states touching towels and other fabrics are more tolerant. Monofilament testing thumb tip is 2.83 but still has sensation deficits distal to incision area. thaner 3.22 pt is also noticing a sweaty hand with activity. therapist has ed. pt that these are all good signs of sensory return. pt is performing scar mtg. ROM and sensory re-ed. pt using right UE as much as what he can aimee. lifting as he tolerates comfortably. therapy would like to cont. with PRE. and sensory re-ed as c9 has date has Goals Patient Goals: Return to Work, Use Hand/Wrist/Arm Normally Again, Be More Independent in ADLS and Resume Former Household Responsibilities (Cooking,Cleaning,Yard, etc.) Goal:Daily scar massage when approriate: Yes Goal Progress: Goal Met Goal:ROM equal to unaffected hand: Yes Goal Progress: Progressing Goal:Hand Chain Maker/Pinch strength at least 75% of unaffected hand: Yes Goal Progress: Progressing Goal:No pain with affected hand use: Yes Goal Progress: Progressing Goal:Full use of affected hand in daily activities including work: Yes Goal Progress: Progressing Goal:Improvement in sensation documented by [place]-Heydi monofiliaments: Yes Goal Progress: Progressing Plan Plan: sensory re-ed vibration AROM until 8 weeks and light PRE 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 pt to cont with increase strength/use as tolerated pt demo understanding of HEP for sensory re-ed d/c sentence: If there are questions or concerns regarding this patient's occupational therapy, please fell free to call me at [phone]. Thank you for the referral of this patient. Sincerely, Magy Abernathy OTR/Nicolasa, CHT
== END 2025-04-05 19:00 | disposition home or self-care (01) ==
LOC: OT 08:30
PROVIDERS: PCP Family Medicine; Referring Provider Orthopaedic Surgery Hand Surgery; Visit Provider Orthopaedic Surgery Hand Surgery
DX: S64.11XD Injury of median nerve at wrist and hand level of right arm, subsequent encounter (principal)
CPT/HCPCS: 97035; 97110; 97140; 97166; 97530